=== PATIENT | male | born 1990 | race Caucasian/White ===

== ENCOUNTER 2017-12-13 07:00 | Observation (INO) ==
[2017-12-13] MEDS ORDERED: Ibuprofen 600 MG TABLET PO ONE (07:15)
[2017-12-13] MEDS ORDERED: *HR* FentaNYL (PF) 100 MCG/2 ML VIAL IVP ONE (07:19)
--- NOTE | 2017-12-13 07:23 | Emergency Department Note ---
Disposition Clinical Impression: Chest pain Qualifiers: Chest pain type: other chest pain Qualified Code(s): R07.89 - Other chest pain ; R07.8 - Other chest pain Myocarditis Qualifiers: Myocarditis type: infective Infective myocarditis organism: viral Chronicity: acute Qualified Code(s): I40.0 - Infective myocarditis Disposition: Admitted As Inpatient Condition: Good Referrals: Zak Mendez DO [Primary Care Provider] - Lakshmi Betancourt [Family Provider] - Forms: ED Satisfaction Letter Time of Disposition: 09:28 Chest Pain HPI - General Chief Complaint: ED Chest Pain Stated Complaint: Chest Pain Time Seen by Provider: 12/13/17 07:05 Source: patient, family Limitations: no limitations Vital Signs Reviewed: Yes Nursing Notes Reviewed: Yes - History of Present Illness HPI Narrative: Chest pain that started yesterday. Relieved. Began again this morning. At times it is 10 out of 10. Gets better whenever he leans forward. Denies any trauma. No associated shortness of breath. Feels like a pulling sensation. Severity scale (1-10): 8 - Related Data Previous Rx's Medication Instructions Recorded Ondansetron ODT [Zofran ODT] 4 mg SL Q6HR PRN #30 tab.rapdis 12/08/17 Allergies Allergy/AdvReac Type Severity Reaction Status Date / Time No Known Allergies Allergy Verified 12/13/17 07:02 All systems ED: reviewed and negative except as stated. Constitutional: Reports: other (Recent viral syndrome. States that he got completely better but then began having chest pain.). Denies: fever, chills ENT ED: Denies: throat pain, congestion Cardiovascular: Reports: chest pain. Denies: palpitations, dyspnea on exertion , syncope Respiratory: Denies: cough, dyspnea, wheezes Gastrointestinal: Denies: abdominal pain, nausea, vomiting, diarrhea Genitourinary: Denies: urgency, dysuria, frequency Musculoskeletal: Denies: back pain, neck pain Integumentary: Denies: rash Neurological: Denies: headache, weakness Chest Pain PMH - Past Medical History Medical history: Reports: other (Had myocarditis approximately 10 years ago.) Psychiatric history: Reports: no psych history - Social History Smoking Status: Never smoker Alcohol use: Reports: occasionally Drug use: Reports: none Physical Exam - General Limitations: no limitations General appearance: alert, in no apparent distress - Head Head exam: atraumatic, normocephalic, normal inspection - Eye Eye exam: Present: normal appearance, PERRL, EOMI - ENT ENT exam: normal exam, normal oropharynx, mucous membranes moist - Neck Neck exam: Present: normal inspection, full ROM, trachea midline - Chest Chest inspection: Present: normal inspection, symmetric chest wall rise - Respiratory Respiratory exam: Present: normal lung sounds bilaterally. Absent: respiratory distress - Cardiovascular Cardiovascular exam: Present: regular rate, normal rhythm, normal heart sounds. Absent: rubs - Abdominal Exam Abdominal exam: Present: soft, Non-Tender. Absent: distention, rigidity, organomegaly - Extremities Exam Extremities exam: Present: normal inspection, full ROM, normal capillary refill. Absent: tenderness, pedal edema - Back Exam Back exam: Present: normal inspection, full ROM. Absent: tenderness, CVA tenderness (R), CVA tenderness (L) - Neurological Exam Neurological exam: Present: alert, oriented X3 - Psychiatric Psychiatric exam: Present: normal affect, normal mood - Skin Skin exam: Present: warm, dry, intact, normal color. Absent: rash, cyanosis, diaphoresis Course Course Narrative: Male patient presenting to emergency department complaining of chest pain. States that he had one episode of this yesterday which resolved on its own. States that while he is driving to work this morning he began having the pain again. Does have a history of myocarditis approximately 10 years ago. Patient was here recently for a viral illness. He states that he had this illness for approximately a month. Patient denies any shortness of breath at this time. States that the pain feels like it is a pulling sensation in his chest. He does get relief with sitting up and even more relief by leaning forward. He is well-appearing and ambulates without difficulty to his room. He does not appear to be in distress. His lung sounds are clear and heart tones are normal. I do not appreciate a friction rub on my exam. His abdomen is soft and nontender and he denies any nausea vomiting or diarrhea. He states that he did get better after his recent visit here on the 16. Patient denies any fevers or chills. He reports that this pain is the same as his pain when he had myocarditis. At that time he had a cardiac catheter due to an elevated troponin that was clean. We will provide patient with ibuprofen while here. He states he did drive to the is refusing fentanyl at this time. We will get an EKG as well as a chest x-ray and basic labs. He is agreeable with this. - Reevaluation(s) Reevaluation #1: Patient reassessed. He is still sitting in bed under no distress. His chest x- ray is normal. We will do a bedside echo. He has no complaints at this time. Time: 08:01 Reevaluation #2: Patient's troponin is elevated to 2.14. He states that his pain is relieved at this time. We have consulted cardiology and will admit to the hospitalist. - Consultations Consultation #1: I spoke with Dr. Palmer. He is agreeable with the ibuprofen and admission to the hospital. He states he will consult patient while here. Time: 08:41 Consultation #2: Dr Velazco accepted Pt in stable condition. Time: 09:15 Vital Signs Temperature 97.8 F 12/13/17 07:03 Pulse Rate 73 12/13/17 07:03 Respiratory Rate 16 12/13/17 07:03 Blood Pressure 137/76 12/13/17 07:03 O2 Sat by Pulse Oximetry 99 12/13/17 07:03 Temperature 97.8 F 12/13/17 07:03 Pulse Rate 72 12/13/17 09:01 Respiratory Rate 16 12/13/17 09:01 Blood Pressure 115/83 12/13/17 09:01 O2 Sat by Pulse Oximetry 100 12/13/17 09:01 Oxygen Delivery Oxygen Delivery Room Air Procedures - Ultrasound-Other Narrative: Bedside ultrasound performed by me and reviewed by Dr. Shelby Garzon showed no wall motion abnormality. No signs of pericardial effusion. Good valve motion. No gross abnormalities; normal exam. Chest Pain - Medical Records Medical records reviewed: Yes I reviewed the patient's medical records. - Lab Data Lab results reviewed: Yes I reviewed the patient's lab results. Result diagrams: 12/13/17 07:30 12/13/17 07:25 Lab Results 12/13/17 12/13/17 Range/Units 07:25 07:30 WBC 5.5 (4.3-11.1) K/mcL RBC 4.61 (4.19-5.50) M/mcL Hgb 13.9 D (12.9-16.9) g/dL Hct 40.7 (37.5-50.1) % MCV 88.3 (83.0-100.0) fL MCH 30.2 (28.0-33.3) pg MCHC 34.2 (31.6-35.5) g/dL RDW 12.7 (11.5-14.5) % Plt Count 281 (140-400) K/mcL MPV 8.6 L (9.4-12.4) fL Immature Gran % 0.2 (0-4) % Seg Neutrophils % 67.3 % Lymphocytes % 24.3 % Monocytes % 7.3 % Eosinophils % 0.5 % Basophils % 0.4 % Neutrophils # 3.7 (1.6-8.9) K/mcL Lymphocytes # 1.3 (0.6-4.6) K/mcL Monocytes # 0.4 (0.0-1.3) K/mcL Eosinophils # 0.0 (0.0-0.6) K/mcL Basophils # 0.0 (0.0-0.2) K/mcL Immature Plt Fraction 0.6 L (1.1-6.1) % Sodium 140 (136-145) mEq/L Potassium 3.8 (3.5-5.1) mEq/L Chloride 105 (98-107) mEq/L Carbon Dioxide 28 (23-29) mEq/L BUN 16 (6-20) mg/dL Creatinine 0.73 (0.70-1.30) mg/dL Est GFR ( Amer) > 60 (> 60) Est GFR (Non-Af Amer) > 60 (> 60) BUN/Creatinine Ratio 22 (6-26) Glucose 85 (70-105) mg/dL Calculated Osmolality 290 (280-300) Calcium 9.1 (8.6-10.3) mg/dL Troponin I 2.14 H* (< 0.04) ng/mL - Radiology Data Radiology results reviewed: Yes I reviewed the patient's radiology results. Chest X-Ray 12/13/17 07:07 IMPRESSION: No acute cardiopulmonary abnormality. D/ / Eric Brice MD / Eric Brice MD Interpreting Provider: Eric Brice MD - EKG Data EKG attestation: Yes I reviewed and interpreted this EKG. EKG results narrative: Normal sinus rhythm at a rate of 71. NE interval is 163. Respirations 99. QT is 371. QTC is 394. No signs of acute ischemia. No NE depressions. No significant change from previous EKG dated 08/05/2009.
[2017-12-13 07:42] LABS: Basophils % 0.4 %; Eosinophils % 0.5 %; Hematocrit 40.7 % (37.5-50.1); Hemoglobin 13.9 g/dL (12.9-16.9); Immature Granulocytes % 0.2 % (0-4); Immature Platelets 0.6 % (1.1-6.1); Lymphocytes # 1.3 K/mcL (0.6-4.6); Lymphocytes % 24.3 %; Mean Corpuscular HGB Conc 34.2 g/dL (31.6-35.5); Mean Corpuscular Hemoglobin 30.2 pg (28.0-33.3); Mean Corpuscular Volume 88.3 fL (83.0-100.0); Mean Platelet Volume 8.6 fL (9.4-12.4); Monocytes # 0.4 K/mcL (0.0-1.3); Monocytes % 7.3 %; Neutrophils # 3.7 K/mcL (1.6-8.9); Platelet Count 281 K/mcL (140-400); Red Blood Count 4.61 M/mcL (4.19-5.50); Red Cell Distribution Width 12.7 % (11.5-14.5); Segmented Neutrophils % 67.3 %
[2017-12-13 08:08] LABS: BUN/Creatinine Ratio 22 (6-26); Blood Urea Nitrogen 16 mg/dL (6-20); Calcium 9.1 mg/dL (8.6-10.3); Carbon Dioxide 28 mEq/L (23-29); Chloride 105 mEq/L (98-107); Glucose 85 mg/dL (70-105); Osmolality,Calculated 290 (280-300); Potassium 3.8 mEq/L (3.5-5.1); Sodium 140 mEq/L (136-145); eGFR For African Americans > 60 (> 60); eGFR For Non-African Americans > 60 (> 60)
[2017-12-13 08:11] LABS: Troponin I 2.14 ng/mL (< 0.04)
--- NOTE | 2017-12-13 11:28 | Internal Med History&Physical ---
Date of Encounter: 12/13/17 Time of Encounter: 11:28 Internal Medicine - H&P: HPI Admitted From: Home Plans for Post Hospital Care: Home History of present illness: Mr. Nunez is a 27 year old Male with no significant past medical history except questionable myocarditis few years back and had heart Done with negative findings presenting to emergency department complaining of left-sided and substernal chest pain started yesterday known at work and he took aspirin and rest for 30-40 minutes that resolved chest pain completely and he resumed his work. Today morning pain reappeared while driving back to work with severety 10 /10, more like pulling sensation, better with sitting up and even more relief leaning forward. In ER initial troponin I raised but no acute ST-T wave change in the EKG. Bedside ultrasound was done with no acute finding. ER physician also consulted cardiologists and has started ibuprofen and 1 dose of fentanyl that resolved his pain completely. During my interview patient denied any chest pain. ER physician called on-call hospitalist for the admission for the workup of chest pain with raised troponin. Patient had cough 3-4 weeks ago but had fever 1 week ago that resolved completely. Patient denies fever, chills, nausea, vomiting, headache, dizziness , shortness of breath, abdominal pain, urinary or bowel complaint. Past Med Surg Social Fam HX - Past Medical History Medical history: other Psychiatric history: no psych history - Social History Smoking Status: Never smoker Smokeless Tobacco Status: No Alcohol use: occasionally Drug use: none - Family History Father Hx Family Cardiac Disorders: Yes (endocarditis, cardiomyopathy) Internal Medicine - H&P: Meds Aspirin Enteric Coated [Aspirin EC] 81 mg PO ONCE 12/13/17 [History] Sertraline [Zoloft] 100 mg PO DAILY 12/13/17 [History] 3 Allergy/AdvReac Type Severity Reaction Status Date / Time No Known Allergies Allergy Verified 12/13/17 07:02 All Systems PM: A 10-system review of systems was performed and is negative for pertinent findings except as documented above in the HPI. - Constitutional Vitals: Temp Pulse Resp BP Pulse Ox 97.8 F 78 17 116/76 98 12/13/17 10:05 12/13/17 10:05 12/13/17 10:05 12/13/17 10:05 12/13/17 10:05 Exam: General appearance: No acute distress, A&O X 3. Girlfriend at bedside Head exam: Atraumatic Eye exam: EOMI, PERRLA ENT exam: Moist oral mucosa Neck nontender, supple Respiratory exam: Clear to auscultation bilaterally Cardiovascular exam: Regular rate and rhythm, no systolic murmur Abdominal exam: Soft, nontender, nondistended, positive bowel sounds Extremities exam: No calf tenderness, no pedal edema Present: Skin-no rash, warm, dry, intact Neurological exam: Alert, awake, oriented 3, CN II-XII intact, no focal deficits. No facial droop. Normal speech. Normal gait. Internal Med - H&P Results - Labs CBC & Chem 7: 12/13/17 07:30 12/13/17 07:25 - Assessment and plan (1) Chest pain Current Visit: Yes Status: Acute Assessment and plan: Sudden onset but resolved completely now after getting pain medicine in the ER. Most likely viral induced myocarditis therefore will continue ibuprofen. Serial troponin, echocardiogram. ER physician already consulted cardiology and will follow his instruction for further management. Qualifiers: Chest pain type: other chest pain Qualified Code(s): R07.89 - Other chest pain; R07.8 - Other chest pain (2) Elevated troponin Current Visit: Yes Status: Acute Assessment and plan: Raised troponin but no acute finding in EKG. Serial troponin, telemetry bed. Most likely due to myocarditis less likely ischemic event. Close monitoring. (3) DVT prophylaxis Current Visit: Yes Status: Acute Assessment and plan: SCDs - Time Spent With Patient Total time spent is greater than 50% in coordination of care (as documented) at patient's floor/unit and/or counseling patient: 25 - 35 minutes
[2017-12-13] MEDS ORDERED: Naloxone 0.4 MG/ML INJ IVP PRN (11:29)
[2017-12-13] MEDS ORDERED: Ibuprofen 600 MG TABLET PO PRN (11:42)
[2017-12-13] MEDS ORDERED: Aspirin Enteric Coated 81 MG Tablet PO ONE (11:45)
--- NOTE | 2017-12-13 14:09 | Cardiology Consult Note ---
Date of Encounter: 12/13/17 Time of Encounter: 14:04 Assessment and Plan (1) Elevated troponin Current Visit: Yes Status: Acute Troponin 2.14. EKG shows SR, HR [address] changes. Chest pain after recent viral illness in young male with no significant cardiac risk factors. Suspect myocarditis. History of myocardiatis 10 years ago. Reports normal LHC at that time. Check TTE and continue to trend troponin. asa given. Ibuprofen scheduled to decrease inflammation. Further recommendation to follow. Discussion w patient/family: The assessment and plan as outlined above was discussed with the patient and/or family members who expressed understanding and agreement. All questions were answered. Thank you for involving us in the care of your patient. Please call with any questions. History of Present Illness Consult date: 12/13/17 Requesting physician: Elie Momin Consult reason: Elevated troponin Chief complaint: Chest pain History of present illness: Mr. Nunez is a 27 year old male with past medical history of myocarditis at age 18 who presented with the c/o chest pain. He reports feeling ill for the past 3- 4 weeks including fever, N/V, and malaise. He was seen at the ED a little over one week ago and was diagnosed with dehydration in relation to his nausea and vomiting. He also took 10 days of amoxicillan during this time. Also reports high stress in his personal life. He c/o chest pain yesterday evening that resolved after taking aspirin. When he woke up this morning the pain returned. Describes pain as a severe left sided chest pressure. Denies aggravating factors. His pain was relieved with Ibuprofen and fenatnyl in the ED. Past Med Surg Social Fam HX - Past Medical History Medical history: other (Myocarditis) Psychiatric history: no psych history - Social History Smoking Status: Never smoker Smokeless Tobacco Status: No Alcohol use: occasionally Drug use: none - Family History Father Hx Family Cardiac Disorders: Yes (endocarditis, cardiomyopathy) Medications and Allergies Aspirin Enteric Coated [Aspirin EC] 81 mg PO ONCE 12/13/17 [History] Sertraline [Zoloft] 100 mg PO DAILY 12/13/17 [History] 3 Allergy/AdvReac Type Severity Reaction Status Date / Time No Known Allergies Allergy Verified 12/13/17 07:02 All Systems Review: The remainder of the systems were reviewed and are negative Physical Examination Vital Signs, Last 4 Hours Temp Pulse Resp BP Pulse Ox 12/13/17 10:05 97.8 F 78 17 116/76 98 General: Conversant, No Apparent Distress HEENT: Atraumatic, Normocephaly, Mucus Membranes Moist Neck: No JVD, Normal carotid pulses Cardiac: Reg Rate and Rhythm, Normal S1 and S2, No Murmur Lungs: Normal Breath Sounds, No Wheeze, Rales, Rhonchi Neuro: Alert and responsive, No focal deficits noted Abdomen: Soft, Non-Tender Skin: No rashes noted on visualized skin Musculoskeletal: No Chest Wall Tenderness Extremities: No Clubbing, No Cyanosis, No Edema, Normal Pulses Results 12/13/17 07:30 12/13/17 07:25 Chest X-Ray 12/13/17 07:07 IMPRESSION: No acute cardiopulmonary abnormality. D/ / Eric Brice MD / Eric Brice MD Interpreting Provider: Eric Brice MD - Imaging and Cardiology Chest Xray: report reviewed - EKG Interpretation EKG results cardiology: personally reviewed Consult Discharge Plan - Plan Referrals: Zak Mendez DO [Primary Care Provider] - Lakshmi Betancourt [Family Provider] -
[2017-12-13] MEDS: Ibuprofen 600 MG TABLET PO SCH (15:43)
[2017-12-14] MEDS: Ibuprofen 600 MG TABLET PO SCH ×3 (00:25→16:07)
[2017-12-14 02:25] LABS: Basophils % 0.2 %; Eosinophils # 0.1 K/mcL (0.0-0.6); Eosinophils % 2.1 %; Hematocrit 36.8 % (37.5-50.1); Hemoglobin 12.6 g/dL (12.9-16.9); Immature Granulocytes % 0.2 % (0-4); Lymphocytes # 1.7 K/mcL (0.6-4.6); Lymphocytes % 39.1 %; Mean Corpuscular HGB Conc 34.2 g/dL (31.6-35.5); Mean Corpuscular Hemoglobin 30.2 pg (28.0-33.3); Mean Corpuscular Volume 88.2 fL (83.0-100.0); Mean Platelet Volume 8.7 fL (9.4-12.4); Monocytes # 0.3 K/mcL (0.0-1.3); Monocytes % 8.1 %; Neutrophils # 2.1 K/mcL (1.6-8.9); Platelet Count 239 K/mcL (140-400); Red Blood Count 4.17 M/mcL (4.19-5.50); Red Cell Distribution Width 12.7 % (11.5-14.5); Segmented Neutrophils % 50.3 %
[2017-12-14 02:46] LABS: BUN/Creatinine Ratio 28 (6-26); Blood Urea Nitrogen 22 mg/dL (6-20); Calcium 8.8 mg/dL (8.6-10.3); Carbon Dioxide 27 mEq/L (23-29); Chloride 105 mEq/L (98-107); Chol/HDL Ratio 3.5 (0-4.9); Cholesterol 112 mg/dL (< 200); Glucose 102 mg/dL (70-105); HDL Cholesterol 32 mg/dL (40-59); LDL Cholesterol,Calculated 58 mg/dL (0-99); Osmolality,Calculated 290 (280-300); Potassium 3.9 mEq/L (3.5-5.1); Sodium 138 mEq/L (136-145); Triglycerides 109 mg/dL (< 150); eGFR For African Americans > 60 (> 60); eGFR For Non-African Americans > 60 (> 60)
--- NOTE | 2017-12-14 09:32 | Cardiology Progress Note ---
Date of Encounter: 12/14/17 Time of Encounter: 09:26 Assessment and Plan (1) Elevated troponin Current Visit: Yes Status: Acute Troponin up to 3.63 and trending down to 2.14. EKG shows SR, HR [address] changes. Chest pain after recent viral illness in young male with no significant cardiac risk factors. Suspect myocarditis. Possible perimyocarditis. LHC does not appear to be indicated at this time. History of myocardiatis 10 years ago. Reports normal LHC at that time. TTE pending to assess LV function. Discussed with Dr. Palmer, consider out-pt cardiac MRI. asa given on admission. Ibuprofen 600 mg every 8 hours scheduled to decrease inflammation. Continue supportive care. Recommend limiting strenuous physical activity for a few months. Continue to monitor telemetry. 24 hour telemetry shows HR 90-120 bpm, NSR-ST. Avg HR 90. Rare PVC. No VT. Discussion w patient/family: The assessment and plan as outlined above was discussed with the patient and/or family members who expressed understanding and agreement. All questions were answered. Thank you for involving us in the care of your patient. Please call with any questions. Subjective Principal diagnosis: myocarditis. Interval history: Mr. Nunez c/o recurrent chest pain this morning. Pain does not change with position. Pain improved with ibuprofen. at bedside, all questions answered , Objective Vital Signs, Last 4 Hours Temp Pulse Resp BP Pulse Ox 12/14/17 06:52 97.9 F 85 16 129/87 98 General: Conversant, No Apparent Distress HEENT: Atraumatic, Normocephaly, Mucus Membranes Moist Neck: No JVD, Normal carotid pulses Cardiac: Reg Rate and Rhythm, Normal S1 and S2, No Murmur Lungs: Normal Breath Sounds, No Wheeze, Rales, Rhonchi Neuro: Alert and responsive, No focal deficits noted Abdomen: Soft, Non-Tender Skin: No rashes noted on visualized skin Musculoskeletal: No Chest Wall Tenderness Extremities: No Clubbing, No Cyanosis, No Edema, Normal Pulses Results 12/14/17 02:10 12/14/17 02:10 Lab Results 12/13/17 12/13/17 12/14/17 13:38 19:07 02:10 WBC Hgb Hct Plt Count Sodium Potassium Chloride Carbon Dioxide BUN Creatinine Glucose Calcium Troponin I 3.63 H* 2.71 H* 2.34 H* 12/14/17 12/14/17 02:10 02:10 WBC 4.2 L Hgb 12.6 L Hct 36.8 L Plt Count 239 Sodium 138 Potassium 3.9 Chloride 105 Carbon Dioxide 27 BUN 22 H Creatinine 0.80 Glucose 102 Calcium 8.8 Troponin I - Imaging and Cardiology Echo: pending - EKG Interpretation EKG results cardiology: personally reviewed Consult Discharge Plan - Plan Referrals: Zak Mendez DO [Primary Care Provider] - Lakshmi Betancourt [Family Provider] -
--- NOTE | 2017-12-14 14:27 | Internal Med Progress Note ---
Date of Encounter: 12/14/17 Time of Encounter: 14:27 - Assessment and plan (1) Chest pain Current Visit: Yes Status: Acute Assessment and plan: Due to myocarditis. Improved compared to yesterday. Continue NSAIDs. Cardiology following. Await 2-D echocardiogram results. Patient reports that this is her second bout of myocarditis. We will check for any underlying rheumatologic disease. Check for for PUMA, rheumatoid factor, anti-CCP, etc. Cardiology recommends monitoring with telemetry for 48 hours. Qualifiers: Chest pain type: other chest pain Qualified Code(s): R07.89 - Other chest pain; R07.8 - Other chest pain (2) Elevated troponin Current Visit: Yes Status: Acute Assessment and plan: Due to myocarditis. (3) DVT prophylaxis Current Visit: Yes Status: Acute Assessment and plan: With SCDs - Time Spent With Patient Total time spent is greater than 50% in coordination of care (as documented) at patient's floor/unit and/or counseling patient: - Subjective Interval history: Patient denies any chest pain at this time but did have chest pain earlier this morning. No shortness of breath. No fever or chills. Feels that he is back to baseline. - Constitutional Vitals: Temp Pulse Resp BP Pulse Ox 97.9 F 80 16 132/86 97 12/14/17 11:48 12/14/17 11:48 12/14/17 11:48 12/14/17 11:48 12/14/17 11:48 General appearance: Present: cooperative, A&O X 3, no acute distress, answers questions appropriately - Neck Neck exam general surgery: Present: supple, trachea midline. Absent: lymphadenopathy - Respiratory Respiratory exam: Present: CTAB. Absent: accessory muscle use, rales, rhonchi, wheezes - Cardiovascular Cardiovascular exam: Present: RRR, +S1, +S2. Absent: diastolic murmur, gallop, rubs, systolic murmur - GI/Abdominal GI/Abdominal exam: Present: normal bowel sounds, soft, no peritoneal signs. Absent: distended, tenderness - Extremities Exam Extremities exam: Present: warm, radial pulses palpable and symmetrical. Absent : calf tenderness, cyanotic, pedal edema - Neurological Exam Neurological exam: Present: alert, CN II-XII intact, oriented X3, no focal deficits. Absent: facial droop, speech deficit Internal Medicine: Result - Labs CBC & Chem 7: 12/14/17 02:10 12/14/17 02:10 Labs: Short CBC 12/14/17 Range/Units 02:10 WBC 4.2 L (4.3-11.1) K/mcL Hgb 12.6 L (12.9-16.9) g/dL Hct 36.8 L (37.5-50.1) % Plt Count 239 (140-400) K/mcL Neutrophils # 2.1 (1.6-8.9) K/mcL BMP 12/14/17 02:10 Sodium 138 Potassium 3.9 Chloride 105 Carbon Dioxide 27 BUN 22 H Creatinine 0.80 Glucose 102 Calcium 8.8 Cardiac Enzymes 12/13/17 12/13/17 12/14/17 Range/Units 13:38 19:07 02:10 Troponin I 3.63 H* 2.71 H* 2.34 H* (< 0.04) ng/mL Consult Discharge Plan - Plan Referrals: Zak Mendez DO [Primary Care Provider] - Lakshmi Betancourt [Family Provider] -
[2017-12-14 16:25] LABS: Adenovirus Not Detected (Not Detect); Coronavirus 229E Not Detected (Not Detect); Coronavirus HKU1 Not Detected (Not Detect); Coronavirus NL63 Not Detected (Not Detect); Coronavirus OC43 Not Detected (Not Detect); Human Metapneumovirus Not Detected (Not Detect)
[2017-12-14 16:26] LABS: Bordetella Pertussis Not Detected (Not Detect); Chlamydophila pneumoniae Not Detected (Not Detect); Human Rhinovirus/Enterovirus Not Detected (Not Detect); Influenza A Subtype 2009 H1 Not Detected (Not Detect); Influenza A Untypeable Not Detected (Not Detect); Influenza B Not Detected (Not Detect); Mycoplasma pneumoniae Not Detected (Not Detect); Parainfluenza Virus 1 Not Detected (Not Detect); Parainfluenza Virus 2 Not Detected (Not Detect); Parainfluenza Virus 3 Not Detected (Not Detect); Parainfluenza Virus 4 Not Detected (Not Detect); Respiratory Syncytial Virus Not Detected (Not Detect)
[2017-12-15] MEDS: Ibuprofen 600 MG TABLET PO SCH ×2 (01:52→08:14)
[2017-12-15 07:25] VITALS: BP 114/71
--- NOTE | 2017-12-15 10:12 | Discharge Summary ---
- NOTES TO OUTPATIENT PROVIDER Notes to Outpatient Provider: Patient admitted with acute myocarditis. Most likely viral cause. But second episode within the past 10 years. Will need autoimmune workup. Blood tests ordered and currently pending. Being treated with NSAIDs. Follow-up on autoimmune workup and consider referral to rheumatology. Cardiac MRI as outpatient. Orders not resulted at time of discharge: Pending orders 12/15/17 03:54 Anti-DNA DS, IgG with reflex AM 0400 Anti-Neutrophil Cyto Ab, IgG AM 0400 Anti-Streptolysin O Antibody AM 0400 CCP IgG AM 0400 CARITO-1 Antibody, IGG AM 0400 MPO/PR3 (ANCA) Antibodies Routine Date of Encounter: 12/15/17 Time of Encounter: 10:10 - Discharge Diagnosis (1) Myocarditis Priority: Primary Status: Acute Qualifiers: Myocarditis type: infective Infective myocarditis organism: viral Chronicity: acute Qualified Code(s): I40.0 - Infective myocarditis (2) Chest pain Priority: Secondary Status: Acute Qualifiers: Chest pain type: other chest pain Qualified Code(s): R07.89 - Other chest pain; R07.8 - Other chest pain (3) Elevated troponin Priority: Secondary Status: Acute (4) DVT prophylaxis Priority: Secondary Status: Acute Hospital course: Mr. Nunez is a 27 year old male patient admitted with acute myocarditis/ pericarditis. Most likely due to viral cause. He was treated with NSAIDs nd his symptoms improved. Cardiology was consulted. We did a 2-D echocardiogram which showed normal ejection fraction. This is his second episode within the past 10 years. He will need autoimmune workup. Blood tests ordered and currently pending. Being treated with NSAIDs. Follow-up on autoimmune workup and consider referral to rheumatology. Cardiac MRI as outpatient. Discharge discussed with: patient, nurse - Time Spent with Patient Total time spent providing and/or coordinating discharge services: Less than 30 minutes (25 min) - Discharge Medications Prescriptions: Ibuprofen [Motrin] 600 mg PO Q8HR #30 tablet Omeprazole [PriLOSEC] 20 mg PO DAILY@0630 #14 capsule.[address] Jorge Medications: Aspirin Enteric Coated [Aspirin EC] 81 mg PO ONCE 12/13/17 [History] Sertraline [Zoloft] 100 mg PO DAILY 12/13/17 [History] Ibuprofen [Motrin] 600 mg PO Q8HR #30 tablet 12/15/17 [Rx] Omeprazole [PriLOSEC] 20 mg PO DAILY@0630 #14 capsule. 12/15/17 [Rx] Allergies/Adverse Reactions: 3 Allergy/AdvReac Type Severity Reaction Status Date / Time No Known Allergies Allergy Verified 12/13/17 07:02 Date of admission: 12/13/17 09:30 Primary care physician: Zak Mendez Consults: 12/13/17 08:19 Consult to Cardiology [CONS] Routine Comment: Consulting Provider: [facility] Reason for Consult: myocarditis, elevated trop Call Completed: Yes Discharging clinician: Christina Diaz Anticipated date of discharge: 12/15/17 - Constitutional Vitals: Temp Pulse Resp BP Pulse Ox 97.3 F L 72 16 114/71 98 12/15/17 07:24 12/15/17 07:24 12/15/17 07:24 12/15/17 07:24 12/15/17 08:20 General appearance: Present: cooperative, A&O X 3, no acute distress, answers questions appropriately - Neck Neck exam general surgery: Present: supple, trachea midline. Absent: lymphadenopathy - Respiratory Respiratory exam: Present: CTAB. Absent: accessory muscle use, rales, rhonchi, wheezes - Cardiovascular Cardiovascular exam: Present: RRR, +S1, +S2. Absent: diastolic murmur, gallop, rubs, systolic murmur - GI/Abdominal GI/Abdominal exam: Present: normal bowel sounds, soft, no peritoneal signs. Absent: distended, tenderness - Extremities Exam Extremities exam: Present: warm, radial pulses palpable and symmetrical. Absent : calf tenderness, cyanotic, pedal edema - Neurological Exam Neurological exam: Present: CN II-XII intact, oriented X3, no focal deficits. Absent: facial droop, speech deficit - Skin Skin exam: Present: dry, intact - Patient Status Disposition: Home, Self-Care Condition: Good Functional capacity at discharge: independent ambulation Overall status at discharge: patient is progressing back to baseline - Discharge Instructions Instructions: Ibuprofen (By mouth), Omeprazole (By mouth), Chest Pain (DC) Follow Up With: Lakshmi Betancourt [Family Provider] - Zak Mendez DO [Primary Care Provider] - (in 1-2 weeks) Ricardo Palmer DO [Partnered Physician] - (in 1-2 weeks) - Diet and Activity Activity: increase activity as tolerated Diet: advance to your usual diet
--- NOTE | 2017-12-15 11:06 | Cardiology Progress Note ---
Date of Encounter: 12/15/17 Time of Encounter: 11:04 Assessment and Plan (1) Myocarditis Status: Acute Troponin up to 3.63 and trending down to 2.14. EKG shows SR, HR [address] changes. Some [place] depression noted. Chest pain after recent viral illness for one month in young male with no significant cardiac risk factors. Suspect myocarditis. Possible perimyocarditis. Given his young age and lack of previous symptoms, suspicion for significant CAD is quite low. At this point, cardiac catheterization does not appear to be necessary. History of myocarditis 10 years ago. Reports normal C at that time. Telemetry shows no concerning arrhythmias. TTE shows normal LV function. No significant valvular disease. Out-pt cardiac MRI recommended to assess tissue involvement. Rheumatoid factor is negative. PUMA ordered by primary team. Recommend continuing Ibuprofen 600 mg every 8 hours scheduled for 3-4 weeks to decrease inflammation. Continue supportive care. Recommend limiting strenuous physical activity for a few months. 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 Per Dr. Soto recommendation he can return to work after of this week. Out-pt f/u in 2-3 weeks with cardiology will be coordinated. Plan of care and assessment reviewed with Dr. Soto. Qualifiers: Myocarditis type: infective Infective myocarditis organism: viral Chronicity: acute Qualified Code(s): I40.0 - Infective myocarditis (2) Elevated troponin Status: Acute Discussion w patient/family: The assessment and plan as outlined above was discussed with the patient and/or family members who expressed understanding and agreement. All questions were answered. Thank you for involving us in the care of your patient. Please call with any questions. Subjective Principal diagnosis: myocarditis. Interval history: Mr. Nunez denies recurrent chest pain. No events overnight. Objective Vital Signs, Last 4 Hours Temp Pulse Resp BP Pulse Ox 12/15/17 08:20 98 12/15/17 07:24 97.3 F L 72 16 114/71 98 General: Conversant, No Apparent Distress HEENT: Atraumatic, Normocephaly, Mucus Membranes Moist Neck: No JVD, Normal carotid pulses Cardiac: Reg Rate and Rhythm, Normal S1 and S2, No Murmur Lungs: Normal Breath Sounds, No Wheeze, Rales, Rhonchi Neuro: Alert and responsive, No focal deficits noted Abdomen: Soft, Non-Tender Skin: No rashes noted on visualized skin Musculoskeletal: No Chest Wall Tenderness Extremities: No Clubbing, No Cyanosis, No Edema, Normal Pulses Results 12/14/17 02:10 12/14/17 02:10 - Imaging and Cardiology Echo: report reviewed - EKG Interpretation EKG results cardiology: personally reviewed Consult Discharge Plan - Plan Instructions: Ibuprofen (By mouth), Omeprazole (By mouth), Chest Pain (DC) Referrals: Zak Mendez DO [Primary Care Provider] - (in 1-2 weeks) Ricardo Palmer DO [Partnered Physician] - (in 1-2 weeks) Lakshmi Betancourt [Family Provider] - Prescriptions: Ibuprofen [Motrin] 600 mg PO Q8HR #30 tablet Omeprazole [PriLOSEC] 20 mg PO DAILY@0630 #14 capsule.
--- NOTE | 2017-12-16 05:39 | Electrocardiograph Report ---
[address] [address] Test Date: 2017-12-13 Pat Name: Bar Nunez Department: 102 Room: 2A Gender: M Quantitative Software Engineer: : [id number] Requested By: María Elena Lopez Order Number: [id number] Reading MD: Ricardo Palmer Measurements Intervals [place] Rate: 71 P: 69 TX: 163 QRS: 69 QRSD: 99 T: 60 QT: 371 QTc: 394 Interpretive Statements SINUS RHYTHM Electronically Signed On 12-16-2017 5:38:04 EDT by Ricardo Palmer
[2017-12-17 08:39] LABS: Anti-Streptolysin O Antibody 231 IU/mL (0-330)
[2017-12-18 09:51] LABS: Myeloperoxidase Ab 0 AU/mL (0-19); Serine Protease-3 Antibody 1 AU/mL (0-19)
== END 2017-12-15 11:28 | disposition home or self-care (01) ==
LOC: EMEROO 07:00 → 2ANU 07:00 → SUATTDRO 09:30 → 2ANU 10:05
PROVIDERS: ADMIT Family Medicine; ATTEND Internal Medicine